=== PATIENT | female | born 1980 | race African-American/Black ===

== ENCOUNTER 2017-11-12 09:28 | Emergency (ER) | payer OTHER, SELFPAY | END 2017-11-12 10:33 | disposition home or self-care (01) | LOC: SCSER 09:28 | DX: S16.1XXA Strain of muscle, fascia and tendon at neck level, initial encounter (principal); S39.012A Strain of muscle, fascia and tendon of lower back, initial encounter; K21.9 Gastro-esophageal reflux disease without esophagitis; I10 Essential (primary) hypertension; V89.2XXA Person injured in unspecified motor-vehicle accident, traffic, initial encounter; Y92.481 Parking lot as the place of occurrence of the external cause | CPT/HCPCS: 99283 ==

== ENCOUNTER 2017-11-22 11:32 | Outpatient (CLI) | payer OTHER | END 2017-11-22 11:33 | disposition home or self-care (01) | LOC: BICRAD 11:32 | PROVIDERS: ATTEND Family Medicine | DX: M54.2 Cervicalgia (principal); V89.2XXA Person injured in unspecified motor-vehicle accident, traffic, initial encounter; R20.2 Paresthesia of skin; M47.892 Other spondylosis, cervical region | CPT/HCPCS: 72040 ==

== ENCOUNTER 2017-11-28 14:00 | Outpatient (CLI) | payer OTHER | END 2017-11-28 14:01 | disposition home or self-care (01) | LOC: BICRAD 14:00 | PROVIDERS: ATTEND Family Medicine | DX: M54.9 Dorsalgia, unspecified (principal); M47.897 Other spondylosis, lumbosacral region | CPT/HCPCS: 72100; 72220 ==

== ENCOUNTER 2017-12-14 15:57 | Outpatient (CLI) | payer OTHER | END 2017-12-14 15:58 | disposition home or self-care (01) | LOC: BICMRI 15:57 | PROVIDERS: ATTEND Neurological Surgery | DX: M48.02 Spinal stenosis, cervical region; M47.12 Other spondylosis with myelopathy, cervical region; M25.78 Osteophyte, vertebrae; M99.81 Other biomechanical lesions of cervical region | CPT/HCPCS: 72141 ==

== ENCOUNTER 2018-03-03 10:14 | Outpatient (CLI) | payer OTHER ==
[2018-03-03 11:55] LABS: BHCG - Serum Negative (NEGATIVE); Pregs Control Background? CLEAR/WHITE (CLR/WHITE); Pregs Control Bar Appear? YES (CONTROL BAR)
== END 2018-03-03 10:15 | disposition home or self-care (01) ==
LOC: LABBT 10:14
PROVIDERS: ATTEND Neurological Surgery
DX: Z01.812 Encounter for preprocedural laboratory examination (principal); M47.12 Other spondylosis with myelopathy, cervical region
CPT/HCPCS: 84703

== ENCOUNTER 2018-03-06 06:38 | Day surgery (SDC) | payer OTHER ==
[2018-03-03 10:45] VITALS: BMI 41.5
[2018-03-06] MEDS ORDERED: Sodium Chloride 0.9% 10 ML ONE (06:48)
[2018-03-06] MEDS ORDERED: CEFAZOLIN/Water 2 GM/20 ML SYRINGE ONE (07:02)
[2018-03-06] MEDS ORDERED: Fentanyl 100 MCG/2 ML VIAL ONE ×4 (08:06→10:06)
[2018-03-06] MEDS ORDERED: Midazolam HCl 2 mg/2 ml Vial ONE (08:07)
[2018-03-06] MEDS ORDERED: HYDROmorphone 0.5 MG/0.5 ML SYRINGE ONE (08:43)
[2018-03-06] MEDS ORDERED: Ketorolac Tromethamine 30 MG/ML VIAL ONE (09:43)
--- NOTE | 2018-03-06 10:34 | OP ---
DATE OF PROCEDURE: 03/06/2018 SURGEON: Jaime Huerta M.D. HEATING UNIT INSTALLER: Armando Vizcaino PA-C PROCEDURE: Anterior cervical discectomy C5-6 and C6-7, interbody arthrodesis, intravertebral biomech anical device, local morselized autograft, demineralized bone matrix, anterior titanium instrumentati on C5-6 and C6-7. PROCEDURE IN DETAIL: The patient was brought to the operating room and intubated. She was positione d supine in modest extension on a gel-filled donut. Incision was made in the right precervical area and dissecting medial to the sternocleidomastoid muscle, identified the anterior cervical spine and o ur level was confirmed by x-ray. We debrided anterior osteophytes, placed distraction across the dis c spaces, and using the operating microscope and microdissection techniques, completely decompressed the spinal cord, removing disk and osteophyte complex beneath the posterior longitudinal ligament. T he bony endplates were then decorticated for purpose of arthrodesis and appropriately sized intravert ebral biomechanical PEEK devices were brought into the field, filled with demineralized bone matrix a nd local morselized autograft, and tapped into place securely at C5-6 and C6-7. Next, an anterior pl ate was brought into the field and secured to C5, C6, and C7 using two 14 mm screws at each level. T he wound was then extensively irrigated, immaculate hemostasis was secured, and the wound was closed in anatomic layers.
[2018-03-06] MEDS ORDERED: diphenhydrAMINE 50 MG/ML VIAL ONE (10:44)
== END 2018-03-06 16:30 | disposition home or self-care (01) ==
LOC: SDC 06:38
PROVIDERS: ATTEND Neurological Surgery
DX: M48.02 Spinal stenosis, cervical region (principal); M47.12 Other spondylosis with myelopathy, cervical region; I10 Essential (primary) hypertension; Z88.5 Allergy status to narcotic agent; Z79.899 Other long term (current) drug therapy
CPT/HCPCS: 76001; 96374; 96375; A4216; C1713; C1776; J0131; J1170; J1200; J1885; J2250; J3010; J3490

== ENCOUNTER 2018-03-21 11:02 | Outpatient (CLI) | payer OTHER ==
--- NOTE | 2018-03-21 13:27 | RAD ---
CERVICAL SPINE RADIOGRAPH SERIES FOUR VIEWS: Indication: Cervical spondylosis with myelopathy, radiculopathy. FINDINGS: Lateral masses of C1 are appropriately aligned. The dens is intact. There is anterior fusion spanning C5 through C7 with anterior metal plate present and two vertebral body screws involving C5, 6, and 7 . Intervening disc space prostheses are present at C5-6 and C6-7. There is no obvious hardware compli cation. There is mild kyphotic curvature of the cervical spine. IMPRESSION: No acute osseous abnormality of the cervical spine. POS: [facility]
== END 2018-03-21 11:03 | disposition home or self-care (01) ==
LOC: TBSIIMAG 11:02
PROVIDERS: ATTEND Neurological Surgery
DX: M47.12 Other spondylosis with myelopathy, cervical region (principal); M47.22 Other spondylosis with radiculopathy, cervical region
CPT/HCPCS: 72040

== ENCOUNTER 2018-04-27 13:57 | Outpatient (CLI) | payer OTHER ==
--- NOTE | 2018-04-27 15:25 | RAD ---
CERVICAL SPINE THREE VIEWS: HISTORY: Disk displacement. Followup after surgery. COMPARISON: 03/21/2018 FINDINGS: On the open-mouth projection, the lateral masses of C1 and C2 articulate appropriately. Limited eval uation of the odontoid process. On the anterior projection, there is an anterior fusion plate with transvertebral screws at C5, C6, a nd C7. Disk prostheses at C5-C6 and C6-C7. Fusion changes are similar to the prior exam. Stable al ignment. Vertebral body height is maintained, and there is no fracture. Stable slight reversal of c ervical kyphosis. Of note, the seventh vertebral body has small cervical ribs bilaterally. IMPRESSION: Stable post surgical changes. POS: [facility]
== END 2018-04-27 13:58 | disposition home or self-care (01) ==
LOC: TBSIIMAG 13:57
PROVIDERS: ATTEND Neurological Surgery
DX: M51.36 Other intervertebral disc degeneration, lumbar region (principal); Z98.890 Other specified postprocedural states
CPT/HCPCS: 72040

== ENCOUNTER 2018-05-29 17:25 | Inpatient (IN) | payer OTHER ==
[~2018-05-29 17:25] MED LIST: Iopamidol 370 76% 100 ML VIAL ONE
[2018-05-29] MEDS ORDERED: Morphine 4 MG/ML VIAL ONE (17:50)
[2018-05-29] MEDS ORDERED: Ketorolac Tromethamine 30 MG/ML VIAL ONE (18:27)
[2018-05-29] MEDS ORDERED: Lorazepam 2 MG/ML VIAL ONE (18:27)
[2018-05-29 18:34] LABS: Eosinophils 3 % (0-10); Hemoglobin 12.9 g/dL (12.0-16.0); Lymphocytes 36 % (21-51); MDiff Complete? YES; Mean Corpuscular HGB CONC 32.8 g/dL (32.0-36.0); Mean Corpuscular Hemoglobin 29.7 pg (27.0-31.0); Mean Corpuscular Volume 90.4 fL (78.0-98.0); Monocytes 9 % (0-10); Neutrophil 51 % (42-75); PLT Morphology Comment Appears Adequate; Platelet Count 297 thou/uL (130-400); RBC Distribution Width 10.8 % (11.5-14.5); Red Blood Cell (RBC) Count 4.33 mill/uL (4.20-5.40); White Blood Cell (WBC) Count 10.4 thou/uL (4.8-10.8)
[2018-05-29 18:41] LABS: ALT (SGPT) 25 U/L (8-55); AST (SGOT) 21 U/L (5-34); Albumin 4.2 g/dL (3.5-5.0); Alkaline Phosphatase 56 U/L (40-150); Anion Gap 15 mmol/L (10-20); BUN (Urea Nitrogen) 10 mg/dL (7.0-18.7); Bilirubin, Total 0.6 mg/dL (0.2-1.2); Calc. Creatinine Clearance 0 mL/min (70-130); Calcium 9.8 mg/dL (7.8-10.44); Carbon Dioxide 24 mmol/L (22-29); Chloride 104 mmol/L (98-107); Estimated GFR-MDRD 90; Globulin 3.8 g/dL (2.4-3.5); Glucose 107 mg/dL (70-105); Lipase 16 U/L (8-78); Potassium 3.5 mmol/L (3.5-5.1); Sodium 139 mmol/L (136-145)
[2018-05-29 18:42] LABS: CKMB 0.4 ng/mL (0-6.6); Troponin I Less than 0.010 ng/mL (< 0.028)
--- NOTE | 2018-05-29 18:54 | RAD ---
AP VIEW CHEST: HISTORY: Assess for spontaneous pneumothorax. FINDINGS: AP view chest demonstrates the lungs to be well aerated. There is suboptimal inspiratory effort. No evidence of pneumonia is seen. Mild pulmonary vascular congestion is seen. No significant evidence of pneumothorax or pneumonia is seen. IMPRESSION: Suboptimal inspiratory effort; otherwise, unremarkable anterior-posterior view chest. POS: [facility]
[2018-05-29] MEDS ORDERED: Enoxaparin Sodium 100 MG/ML SYRINGE ONE (19:27)
--- NOTE | 2018-05-29 20:03 | CT ---
CONTRAST ENHANCED CTA CHEST: HISTORY: Pleuritic chest pain. TECHNIQUE: Contrast enhanced CTA chest was performed, and 2D and 3D reconstructed images were performed on an in dependent 3D work station. FINDINGS: CTA chest demonstrates an extensive filling defect seen in the right distal pulmonary artery, compati ble with a large pulmonary embolus, which extends into the right lower lobe and right middle lobe. A dditional filling defects also seen in the left lower lobe pulmonary arteries, compatible with additi onal left lower lobe pulmonary emboli. Some areas of air space opacity also seen in the right lower lobe, compatible with possible areas of right lower lobe developing pulmonary infarction. IMPRESSION: Extensive bilateral lower lobe filling defects, compatible with extensive pulmonary emboli. The righ t-sided clot also extends into the right middle lobe. POS: [facility]
[2018-05-29 22:16] VITALS: BMI 39.7
[2018-05-29] MEDS ORDERED: Ondansetron HCl/PF 4 MG/2 ML Vial IVP PRN (23:48)
[2018-05-29] MEDS ORDERED: Acetaminophen 500 MG TAB PO PRN (23:50)
[2018-05-30 06:46] LABS: #Eosinphils 0.1 thou/uL (0.0-0.7); #Lymphocytes 3.9 thou/uL (1.20-3.40); #Monocytes 0.8 thou/uL (0.11-0.59); #Neutrophils 4.5 thou/uL (1.40-6.50); %Basophils 0.5 % (0.0-1.0); %Eosinophils 1.5 % (0.0-10.0); %Lymphocytes 41.4 % (21.0-51.0); %Monocytes 8.8 % (0.0-10.0); %Neutrophils 47.8 % (42.0-75.0); Hemoglobin 11.3 g/dL (12.0-16.0); Mean Corpuscular HGB CONC 33.1 g/dL (32.0-36.0); Mean Corpuscular Hemoglobin 30.4 pg (27.0-31.0); Mean Corpuscular Volume 91.8 fL (78.0-98.0); Mean Platelet Volume 7.5 fL (7.4-10.4); Platelet Count 299 thou/uL (130-400); RBC Distribution Width 11.4 % (11.5-14.5); White Blood Cell (WBC) Count 9.4 thou/uL (4.8-10.8)
[2018-05-30 06:50] LABS: Anion Gap 14 mmol/L (10-20); BUN (Urea Nitrogen) 12 mg/dL (7.0-18.7); Calc. Creatinine Clearance 154 mL/min (70-130); Calcium 9.1 mg/dL (7.8-10.44); Carbon Dioxide 22 mmol/L (22-29); Chloride 103 mmol/L (98-107); Estimated GFR-MDRD Greater than 90; Glucose 103 mg/dL (70-105); Potassium 3.5 mmol/L (3.5-5.1); Sodium 135 mmol/L (136-145)
--- NOTE | 2018-05-30 07:27 | HP ---
TIME OF EVALUATION: 2300 hours. PRIMARY CARE PHYSICIAN: Dr. Helen Flores. CODE STATUS: FULL CODE. CHIEF COMPLAINT: Chest pain. HISTORY OF PRESENT ILLNESS: This is a 38-year-old female patient. The patient has a past medical history of obesity, GERD, hypertension, who came to the hospital, transferred from [facility] ER after having shortness of breath, severe chest pain on the right side of the chest. Chest pain worsens with inspiration and cough. Symptoms have been present for a week. Since 11: 00 a.m. this morning, has been getting really worse. No clear triggers, no alleviating factors, had pain medications in the ER. REVIEW OF SYSTEMS: Constitutional: The patient had no fever, chills, or generalized weakness. Respiratory: The patient had occasional cough with pleuritic chest pain. No sputum production. Cardiovascular: Chest pain as described above, palpitation. Gastrointestinal: No nausea, vomiting, diarrhea , or abdominal pain. Central Nervous Systems: No dizziness, headache, or feeling lightheaded. Genitourinary: No burning on urination. Extremities: No leg swelling. All other systems reviewed and negative except for the findings mentioned above. PAST MEDICAL HISTORY: Mentioned in the HPI. PAST SURGICAL HISTORY: Patient has a history of carpal tunnel surgery on the right side. History of cholecystectomy, , cervical spine surgery. PSYCHIATRIC HISTORY: No previous psychiatric history. SOCIAL HISTORY: No drugs, alcohol, or smoking history. FAMILY HISTORY: Grandmother had DVT. Mother had hypertension. Father is , unknown family history. KNOWN ALLERGIES: HYDROCODONE. HOME MEDICATIONS: Vitamin D3, omeprazole, amlodipine, metoprolol, hydrochlorothiazide, . PHYSICAL EXAMINATION: VITAL SIGNS: On presentation, blood pressure 134/76, and temperature 100.1, pain 10/10 in the right side of the chest. Heart rate was 114, respiratory rate was 26, saturation 99 on room air. GENERAL APPEARANCE: The patient is alert, oriented, in no any acute distress. HEENT: Eyes, normal conjunctivae. Dry oral mucosa. Anicteric. NECK: No JVD. RESPIRATORY: Bilateral air entry is decreased mostly on the right side. The patient is not breathing properly due to right side pain. No wheezing. Symmetric expansion. CARDIOVASCULAR: Patient is tachycardic, normal rhythm. No murmurs, no gallop. EXTREMITIES: No edema. ABDOMEN: Soft, normal bowel sounds. MUSCULOSKELETAL: Baseline range of motion and strength. No tenderness. Peripheral pulses are present. Capillary refill seems to be intact. SKIN: Warm and intact. No pallor, no rash, no redness. NEUROLOGY: Baseline sensorium. No evidence of any new focal weakness. Baseline speech. Cranial nerves seem to be intact. PSYCHIATRIC: The patient is in good mood. No anxiety. Oriented, optimal judgment. IMAGING: EKG: Patient has sinus tachycardia, no other specific changes, nondiagnostic for any other pathology. RADIOLOGY: The patient's CT chest was done, showed pulmonary embolism, worse on the right side with possible pulmonary infarction. LABORATORY DATA: White count 10.4, hemoglobin 12.9, MCV 90.4, platelet count 297,000. D-dimer 3.95. Sodium 139, potassium 3.5, chloride 104, carbon dioxide 24, anion gap 15, BUN 10, creatinine 0.8, GFR 90, glucose 107, calcium 9.8, total bilirubin 0.6, AST 31, ALT 35, alkaline phosphatase 56. Troponin was negative. Beta-natriuretic peptide was normal. Serum total protein 8.0, albumin 4.2, globulin 3.8, albumin and globulin ratio 1.1, lipase 16. ASSESSMENT AND PLAN: The patient will be placed in the hospital following medical problems: 1. Multiple pulmonary embolism with right-sided possible pulmonary infarction. The patient is on full dose Lovenox. No clear etiology, only finding was that the patient was on estrogen pills, that might be related to the PE. It is of note also the patient has a neck surgery a few weeks ago that could have been contributed to the PE. I have discussed in details of choices regarding anticoagulation with Coumadin versus the newer anticoagulants. The patient will make a decision in the morning. Once arrangements done for the patient to be able to get her medications, then we can switch to oral ones. 2. Severe right-sided chest pain. The patient needing opioid medication for optimal control. At this point, the patient had risk complications and treatment. 3. History of hypertension. We will not treat aggressively since patient has risk for obstructive shock. This can be reconciled once patient is more stable. 4. Deep venous thrombosis prophylaxis. The patient is on full-dose Lovenox. MTDD
[2018-05-30] MEDS: Enoxaparin Sodium 120 MG/0.8 ML SYRINGE SC SCH ×2 (09:03→21:58)
[2018-05-30] MEDS: Loratadine 10 MG TAB PO SCH (09:03)
[2018-05-30] MEDS: Multivit, Therapeutic 1 TAB PO SCH (09:04)
[2018-05-30] MEDS ORDERED: Fentanyl 100 MCG/2 ML VIAL SLOW IVP PRN (09:30)
[2018-05-30] MEDS ORDERED: Lorazepam 0.5 MG TAB PO PRN (09:31)
[2018-05-30] MEDS ORDERED: Ketorolac Tromethamine 30 MG/ML VIAL IVP PRN (09:31)
[2018-05-30] MEDS ORDERED: Dextrose 5% in Water 1,000 ML IV PRN (09:56)
[2018-05-30] MEDS ORDERED: HumaLOG 300 UNITS/3 ML VIAL SC PRN (09:56)
[2018-05-30] MEDS ORDERED: Dextrose 50% Abboject 50 ML SYRINGE SLOW IVP PRN (09:56)
[2018-05-30] MEDS ORDERED: Lidocaine 5% Patch TD SCH (10:00)
[2018-05-30] MEDS ORDERED: Lidocaine Patch Removal 1 EACH TOP SCH ×3 (10:00→22:00)
[2018-05-30 13:48] LABS: INR-International Normal Ratio 1.1
--- NOTE | 2018-05-30 15:20 | PDOC.PN ---
- Subjective Encounter Start Date: 05/30/18 Encounter Start Time: 08:00 Pt seen for followup re: pulmonary embolism. Reports chest pain, on and off. - Objective Resuscitation Status: Resuscitation Status FULL:Full Resuscitation MAR Reviewed: Yes Vital Signs & Weight: Vital Signs (12 hours) Temp Pulse Resp BP Pulse Ox 05/30/18 12:04 98.8 F 103 H 16 130/82 98 05/30/18 07:35 98.3 F 107 H 18 126/74 96 05/30/18 03:23 99.3 F 82 18 122/72 97 Weight Weight 238 lb 12.8 oz I&O: 05/29/18 05/30/18 05/31/18 06:59 06:59 06:59 Intake Total 200 Output Total 400 Balance -200 Result Diagrams: 05/30/18 05:43 05/30/18 05:43 Additional Labs: Accuchecks 05/30/18 11:21 POC Glucose 104 EKG Reviewed by me: Yes (Tele: NSR) Phys Exam - Physical Examination Obese HEENT: moist MMs, sclera anicteric, 2+ tonsils Neck: no nodes, no JVD, supple, full ROM Respiratory: no wheezing, no rales, no rhonchi, clear to auscultation bilateral Cardiovascular: RRR, no rub S1, S2 Gastrointestinal: soft, non-tender, no distention, positive bowel sounds Neurological: moves all 4 limbs Psychiatric: normal affect, A&O x 3 Dx/Plan (1) Pulmonary embolism Code(s): I26.99 - OTHER PULMONARY EMBOLISM WITHOUT ACUTE COR PULMONALE Status : Acute Comment: discussed with pt, pt wants to go on warfarin. Will start warfarin. (2) Chest pain Code(s): R07.9 - CHEST PAIN, UNSPECIFIED Status: Acute Comment: Due to PE. Start fentanyl PRN, toradol PRN and lidocaine patch. (3) GERD (gastroesophageal reflux disease) Code(s): K21.9 - GASTRO-ESOPHAGEAL REFLUX DISEASE WITHOUT ESOPHAGITIS Status: Chronic Comment: stable (4) HTN (hypertension) Code(s): I10 - ESSENTIAL (PRIMARY) HYPERTENSION Status: Chronic Comment: controlled - Plan * . Review of Systems - Review of Systems Constitutional: negative: fever, chills, sweats, weakness, malaise Respiratory: Pleuritic Pain. negative: Cough, Shortness of Breath, SOB with Excertion, Sputum, Wheezing Cardiovascular: chest pain. negative: palpitations, orthopnea, paroxysmal nocturnal dyspnea, edema, light headedness Gastrointestinal: negative: Nausea, Vomiting, Abdominal Pain, Diarrhea, Constipation, Melena, Hematochezia Genitourinary: negative: Dysuria, Frequency, Incontinence, Hematuria, Retention Skin: negative: Rash, Lesions, Angel, Bruising - Medications/Allergies Allergies/Adverse Reactions: Allergies Allergy/AdvReac Type Severity Reaction Status Date / Time hydrocodone AdvReac itch Verified 03/03/18 10:45 Medications: Current Medications Acetaminophen (Tylenol) 650 mg PO Q4H PRN PRN Reason: Headache/Fever Acetaminophen (Tylenol) 500 mg PO Q6H PRN PRN Reason: Pain Last Admin: 05/30/18 00:19 Dose: 500 mg Cholecalciferol (Vitamin D3) 1,000 units PO DAILY [facility] Last Admin: 05/30/18 09:04 Dose: 1,000 units Dextrose/Water (Dextrose 50%) 25 gm SLOW IVP PRN PRN PRN Reason: Hypoglycemia Enoxaparin Sodium (Lovenox) 110 mg SC 0900,2100 [facility] Last Admin: 05/30/18 09:03 Dose: 110 mg Fentanyl (Sublimaze) 12.5 mcg SLOW IVP Q8H PRN PRN Reason: Pain Last Admin: 05/30/18 12:19 Dose: 12.5 mcg Glucagon (Glucagon) 1 mg IM PRN PRN PRN Reason: Hypoglycemia Dextrose/Water (D5w) 1,000 mls @ 0 mls/hr IV .Q0M PRN PRN Reason: Hypoglycemia Insulin Human Lispro (Humalog) 0 units SC .MILD SLIDING SCALE PRN PRN Reason: Mild Correctional Scale Ketorolac Tromethamine (Toradol) 15 mg IVP Q8H PRN PRN Reason: Pain Stop: 06/04/18 09:32 Last Admin: 05/30/18 10:05 Dose: 15 mg Lidocaine (Lidoderm 5% Patch) 1 patch TD Q24H [facility] Last Admin: 05/30/18 10:05 Dose: 1 patch Loratadine (Claritin) 10 mg PO DAILY [facility] Last Admin: 05/30/18 09:03 Dose: 10 mg Lorazepam (Ativan) 0.5 mg PO Q8H PRN PRN Reason: Anxiety Miscellaneous Medication (Lidocaine Patch Removal) 1 each TOP ASDIR [facility] Miscellaneous Medication (Pharmacy To Dose) 0 each PO WILLCALL [facility] Multivitamins (Theragran) 1 tab PO DAILY [facility] Last Admin: 05/30/18 09:04 Dose: 1 tab Ondansetron HCl (Zofran) 4 mg IVP Q6H PRN PRN Reason: Nausea/Vomiting Pantoprazole Sodium (Protonix) 40 mg PO DAILY [facility] Last Admin: 05/30/18 09:04 Dose: 40 mg Sodium Chloride (Flush - Normal Saline) 10 ml IVF Q12HR [facility] Sodium Chloride (Flush - Normal Saline) 10 ml IVF PRN PRN PRN Reason: Saline Flush Last Admin: 05/30/18 10:08 Dose: 10 ml Warfarin Sodium (Coumadin) 5 mg PO 1700 [facility] Zolpidem Tartrate (Ambien) 5 mg PO HS [facility]
[2018-05-30] MEDS: Acetaminophen 325 MG TAB PO PRN (15:37)
[2018-05-30 16:02] LABS: BHCG - Serum Negative (NEGATIVE); Pregs Control Background? CLEAR/WHITE (CLR/WHITE); Pregs Control Bar Appear? YES (CONTROL BAR)
[2018-05-30] MEDS ORDERED: Melatonin 3 MG TAB PO PRN (16:19)
[2018-05-30] MEDS: Warfarin Sodium 5 MG TAB PO SCH (17:06)
[2018-05-30] MEDS: Ketorolac Tromethamine 30 MG/ML VIAL IVP PRN (17:08)
[2018-05-30] MEDS: Zolpidem Tartrate 5 MG TAB PO SCH (22:02)
[2018-05-30] MEDS: Fentanyl 100 MCG/2 ML VIAL SLOW IVP PRN (22:08)
[2018-05-31 05:42] LABS: INR-International Normal Ratio 1.1
[2018-05-31 05:47] LABS: Hemoglobin 11.3 g/dL (12.0-16.0); Platelet Count 321 thou/uL (130-400)
[2018-05-31 05:50] LABS: Calc. Creatinine Clearance 158 mL/min (70-130); Estimated GFR-MDRD Greater than 90
[2018-05-31] MEDS: Multivit, Therapeutic 1 TAB PO SCH (10:06)
[2018-05-31] MEDS: Loratadine 10 MG TAB PO SCH (10:07)
[2018-05-31] MEDS: Enoxaparin Sodium 120 MG/0.8 ML SYRINGE SC SCH ×2 (10:08→21:33)
[2018-05-31] MEDS: Lidocaine 5% Patch TD SCH (10:11)
--- NOTE | 2018-05-31 12:35 | CON ---
DATE OF CONSULTATION: 05/31/2018 CONSULTING PHYSICIAN: Hospitalist group. REASON FOR CONSULTATION: Pulmonary embolism. HISTORY OF PRESENT ILLNESS: Ms. Juan Wills is a pleasant 38-year-old female who presented yeste rday with 3-4 days history of right-sided chest pain with radiation to the shoulder. She thought it was related to a surgery she had on her shoulder back in 02/2018. She was found instead to have sign ificant pulmonary emboli, mainly on the right, but some on the left. She has no previous history of blood clotting disorder. She does take control pills. She knows of no recent injury to her le gs and has had no prolonged immobilization. PAST MEDICAL HISTORY: 1. Hypertension. 2. Newly diagnosed diabetes mellitus type 2. PAST SURGICAL HISTORY: 1. Carpal tunnel release in the right side. 2. Shoulder surgery. 3. Cholecystectomy. 4. . 5. Cervical spine surgery. PSYCHIATRIC HISTORY: Unremarkable. SOCIAL HISTORY: Nonsmoker, does not consume alcohol. She is , has children. FAMILY MEDICAL HISTORY: Her sister had a DVT. Mother had hypertension. ALLERGIES: HYDROCODONE. MEDICATIONS: Prior to admission; omeprazole, amlodipine, metoprolol, hydrochlorothiazide, vitamin D 3. REVIEW OF SYSTEMS: Twelve point review of systems otherwise negative. PHYSICAL EXAMINATION: VITAL SIGNS: Temperature 98.3, pulse 102, respirations 16, O2 sat 96%, blood pressure 130/71. GENERAL: She is awake, alert, and in no distress. HEENT: Unremarkable. NECK: No adenopathy or JVD. LUNGS: She has a scar just above her clavicle on the right side. CARDIOVASCULAR: S1, S2 regular with no audible murmur. LUNGS: A few crackles in the right base, left side clear. ABDOMEN: Soft, nontender, nondistended. EXTREMITIES: No clubbing, cyanosis. She may have some edema in her left lower extremity. LABORATORY DATA: White blood cell count 9.4, hematocrit 34, platelet count 299. INR 1.1. Sodium 13 5, potassium 3.5, chloride 103, CO2 22, BUN 12, creatinine 0.8, glucose 103, test negative. CT was reviewed. She has significant pulmonary emboli, especially on the right. She has a pulmonary infarction on the right. ASSESSMENT: 1. Pulmonary embolism. The prevailing risk factor seems to be use of contraceptives. She also has a family history. 2. Hypertension. 3. Diabetes mellitus type 2. RECOMMENDATIONS: 1. She needs an echocardiogram to evaluate her heart for right-sided strain. 2. Doppler ultrasound of lower extremities to evaluate for DVT. 3. Anticoagulation for at least 6 months. The patient has chosen to be on warfarin which means her hospital time might be extended as she needs to be bridged with Lovenox. Her goal INR should be 2.0- 3.0. 4. She needs to pursue a different method of control. 5. Further disposition to follow.
--- NOTE | 2018-05-31 15:10 | ULT ---
BILATERAL LOWER EXTREMITY VENOUS ULTRASOUND WITH DOPPLER: HISTORY: Known pulmonary artery emboli. COMPARISON: None. TECHNIQUE: Mai-scale, color-flow, and Doppler imaging with spectral wave-form analysis was performed of the lef t and right lower extremity venous system. FINDINGS: RIGHT LOWER EXTREMITY: There is compressibility, presence of flow, and augmentation in the common fe moral vein, femoral vein, and popliteal vein. There is flow in the greater saphenous vein, popliteal vein, and posterior tibial vein. LEFT LOWER EXTREMITY: There is compressibility, presence of flow, and augmentation in the proximal a nd mid femoral vein. There is evidence of echogenic material, compatible with thrombus, in the dista l femoral vein. There is also thrombus in the popliteal vein. Flow is not appreciated in the head of commission department ior tibial vein. The greater saphenous vein and profunda femoral vein are patent. IMPRESSION: Left lower extremity deep venous thrombus. POS: [facility]
--- NOTE | 2018-05-31 17:08 | PDOC.PN ---
- Subjective Encounter Start Date: 05/31/18 Encounter Start Time: 08:00 Pt seen for followup re: pulmonary embolism. Chest pain is better. No nausea or vomiting. No abdo pain. - Objective Resuscitation Status: Resuscitation Status FULL:Full Resuscitation MAR Reviewed: Yes Vital Signs & Weight: Vital Signs (12 hours) Temp Pulse Resp BP Pulse Ox 05/31/18 12:05 98.5 F 99 18 129/84 98 05/31/18 07:34 98.3 F 102 H 16 130/71 96 Weight Weight 237 lb 6.4 oz I&O: 05/30/18 05/31/18 06/01/18 06:59 06:59 06:59 Intake Total 200 1550 Output Total 400 600 Balance -200 950 Result Diagrams: 05/31/18 05:08 05/31/18 05:08 Additional Labs: Accuchecks 05/31/18 05/31/18 05/30/18 10:53 06:10 21:01 POC Glucose 129 H 104 192 H 05/30/18 17:17 POC Glucose 85 EKG Reviewed by me: Yes (Tele: sinus tachycardia) Phys Exam - Physical Examination Constitutional: NAD HEENT: moist MMs, sclera anicteric, oral pharynx no lesions, 2+ tonsils Neck: no nodes, no JVD, supple, full ROM Respiratory: no wheezing, no rales, no rhonchi, clear to auscultation bilateral S1, S2, tachy, reg Gastrointestinal: soft, non-tender, no distention, positive bowel sounds Neurological: moves all 4 limbs Psychiatric: normal affect, A&O x 3 Dx/Plan (1) Pulmonary embolism Code(s): I26.99 - OTHER PULMONARY EMBOLISM WITHOUT ACUTE COR PULMONALE Status : Acute Comment: Pt started on warfarin (2) Chest pain Code(s): R07.9 - CHEST PAIN, UNSPECIFIED Status: Acute Comment: Improve, continue fentanyl PRN, toradol PRN and lidocaine patch. (3) GERD (gastroesophageal reflux disease) Code(s): K21.9 - GASTRO-ESOPHAGEAL REFLUX DISEASE WITHOUT ESOPHAGITIS Status: Chronic Comment: stable (4) HTN (hypertension) Code(s): I10 - ESSENTIAL (PRIMARY) HYPERTENSION Status: Chronic Comment: controlled - Plan * . Review of Systems - Review of Systems Constitutional: negative: fever, chills, sweats, weakness, malaise Respiratory: negative: Cough, Shortness of Breath, SOB with Excertion, Pleuritic Pain, Sputum Cardiovascular: chest pain. negative: palpitations, orthopnea, paroxysmal nocturnal dyspnea, edema, light headedness Gastrointestinal: negative: Nausea, Vomiting, Abdominal Pain, Diarrhea, Constipation, Melena, Hematochezia Musculoskeletal: negative: Neck Pain, Shoulder Pain, Arm Pain, Back Pain, Hand Pain, Leg Pain, Foot Pain Skin: negative: Rash, Lesions, Angel, Bruising - Medications/Allergies Allergies/Adverse Reactions: Allergies Allergy/AdvReac Type Severity Reaction Status Date / Time hydrocodone AdvReac itch Verified 03/03/18 10:45 Medications: Current Medications Acetaminophen (Tylenol) 650 mg PO Q4H PRN PRN Reason: Headache/Fever Last Admin: 05/30/18 15:37 Dose: 650 mg Acetaminophen (Tylenol) 500 mg PO Q6H PRN PRN Reason: Pain Last Admin: 05/30/18 00:19 Dose: 500 mg Cholecalciferol (Vitamin D3) 1,000 units PO DAILY [facility] Last Admin: 05/31/18 10:06 Dose: 1,000 units Dextrose/Water (Dextrose 50%) 25 gm SLOW IVP PRN PRN PRN Reason: Hypoglycemia Enoxaparin Sodium (Lovenox) 110 mg SC 0900,2100 [facility] Last Admin: 05/31/18 10:08 Dose: 110 mg Fentanyl (Sublimaze) 12.5 mcg SLOW IVP Q6H PRN PRN Reason: Pain Last Admin: 05/30/18 22:08 Dose: 12.5 mcg Glucagon (Glucagon) 1 mg IM PRN PRN PRN Reason: Hypoglycemia Dextrose/Water (D5w) 1,000 mls @ 0 mls/hr IV .Q0M PRN PRN Reason: Hypoglycemia Insulin Human Lispro (Humalog) 0 units SC .MILD SLIDING SCALE PRN PRN Reason: Mild Correctional Scale Ketorolac Tromethamine (Toradol) 15 mg IVP Q6H PRN PRN Reason: Pain Stop: 06/04/18 09:32 Last Admin: 05/30/18 17:08 Dose: 15 mg Lidocaine (Lidoderm 5% Patch) 2 patch TD DAILY [facility] Last Admin: 05/31/18 10:11 Dose: Not Given Loratadine (Claritin) 10 mg PO DAILY [facility] Last Admin: 05/31/18 10:07 Dose: 10 mg Lorazepam (Ativan) 0.5 mg PO Q8H PRN PRN Reason: Anxiety Melatonin (Melatonin) 3 mg PO HS PRN PRN Reason: Insomnia Miscellaneous Medication (Pharmacy To Dose) 0 each PO WILLCALL [facility] Miscellaneous Medication (Lidocaine Patch Removal) 1 each TOP 2100 [facility] Multivitamins (Theragran) 1 tab PO DAILY [facility] Last Admin: 05/31/18 10:06 Dose: 1 tab Ondansetron HCl (Zofran) 4 mg IVP Q6H PRN PRN Reason: Nausea/Vomiting Pantoprazole Sodium (Protonix) 40 mg PO DAILY [facility] Last Admin: 05/31/18 10:07 Dose: 40 mg Sodium Chloride (Flush - Normal Saline) 10 ml IVF Q12HR [facility] Last Admin: 05/31/18 10:09 Dose: 10 ml Sodium Chloride (Flush - Normal Saline) 10 ml IVF PRN PRN PRN Reason: Saline Flush Last Admin: 05/31/18 10:09 Dose: 10 ml Warfarin Sodium (Coumadin) 5 mg PO 1700 [facility] Last Admin: 05/30/18 17:06 Dose: 5 mg Zolpidem Tartrate (Ambien) 5 mg PO HS [facility] Last Admin: 05/30/18 22:02 Dose: 5 mg
[2018-05-31] MEDS: Acetaminophen 325 MG TAB PO PRN (17:41)
[2018-05-31] MEDS: Warfarin Sodium 5 MG TAB PO SCH (17:42)
[2018-05-31] MEDS: Lidocaine Patch Removal 1 EACH TOP SCH (21:32)
[2018-05-31] MEDS: Zolpidem Tartrate 5 MG TAB PO SCH (21:33)
[2018-06-01] MEDS: Fentanyl 100 MCG/2 ML VIAL SLOW IVP PRN (02:18)
[2018-06-01 05:53] LABS: INR-International Normal Ratio 1.1
[2018-06-01] MEDS: Enoxaparin Sodium 120 MG/0.8 ML SYRINGE SC SCH ×2 (08:31→20:23)
[2018-06-01] MEDS: Lidocaine 5% Patch TD SCH (08:31)
[2018-06-01] MEDS: Ketorolac Tromethamine 30 MG/ML VIAL IVP PRN (08:32)
[2018-06-01] MEDS: Multivit, Therapeutic 1 TAB PO SCH (08:33)
[2018-06-01] MEDS: Loratadine 10 MG TAB PO SCH (08:33)
--- NOTE | 2018-06-01 09:27 | PRG ---
DATE OF SERVICE: 06/01/2018. SUBJECTIVE: The patient is continuing to have intermittent chest pain on the right, requiring [place] l. OBJECTIVE: VITAL SIGNS: Temperature 97.9, pulse 101, respirations 18, O2 sat 95% on room air, blood pressure 13 9/88. HEENT: Unremarkable. NECK: No JVD. CHEST: Clear without wheezing. CARDIAC: S1 and S2 regular. ABDOMEN: Soft. EXTREMITIES: No edema. LABORATORY DATA: She had deep venous thrombosis present in left lower extremity. Echocardiogram was basically normal except for slightly depressed EF. She had no signs of right heart strain. INR is 1.1. ASSESSMENT: 1. Deep venous thrombosis/pulmonary embolism. 2. Likely pulmonary infarction. PLAN: Continue Coumadin and enoxaparin. The patient can be transferred up to the medical floor as I do not think she needs further telemetry monitoring.
--- NOTE | 2018-06-01 14:07 | PDOC.PN ---
- Subjective Encounter Start Date: 06/01/18 Encounter Start Time: 07:20 Pt seen for followup re: pulmonary embolism. Had chest pain overnight, better now. - Objective Resuscitation Status: Resuscitation Status FULL:Full Resuscitation MAR Reviewed: Yes Vital Signs & Weight: Vital Signs (12 hours) Temp Pulse Resp BP Pulse Ox 06/01/18 11:36 98.3 F 102 H 16 137/82 97 06/01/18 07:43 97.9 F 101 H 18 139/88 95 06/01/18 04:00 98.4 F 101 H 21 H 133/79 93 L Weight Weight 237 lb 6.4 oz I&O: 05/31/18 06/01/18 06/02/18 06:59 06:59 06:59 Intake Total 1550 360 Output Total 600 600 Balance 950 -240 Result Diagrams: 05/31/18 05:08 05/31/18 05:08 Additional Labs: Accuchecks 06/01/18 05/31/18 05/31/18 11:38 20:57 17:08 POC Glucose 103 138 H 132 H EKG Reviewed by me: Yes (Tele: NSR) Phys Exam - Physical Examination Obese HEENT: moist MMs Neck: supple Respiratory: clear to auscultation bilateral Cardiovascular: RRR Gastrointestinal: soft Neurological: moves all 4 limbs Psychiatric: normal affect Dx/Plan (1) Pulmonary embolism Code(s): I26.99 - OTHER PULMONARY EMBOLISM WITHOUT ACUTE COR PULMONALE Status : Acute Comment: INR 1.1 today, warfarin dosing per pharmacy (2) Chest pain Code(s): R07.9 - CHEST PAIN, UNSPECIFIED Status: Acute Comment: Improved (3) GERD (gastroesophageal reflux disease) Code(s): K21.9 - GASTRO-ESOPHAGEAL REFLUX DISEASE WITHOUT ESOPHAGITIS Status: Chronic Comment: stable (4) HTN (hypertension) Code(s): I10 - ESSENTIAL (PRIMARY) HYPERTENSION Status: Chronic Comment: controlled - Plan * . Review of Systems - Review of Systems Respiratory: negative: Cough, Shortness of Breath, SOB with Excertion, Pleuritic Pain, Wheezing Cardiovascular: chest pain. negative: palpitations, orthopnea, paroxysmal nocturnal dyspnea, edema, light headedness - Medications/Allergies Allergies/Adverse Reactions: Allergies Allergy/AdvReac Type Severity Reaction Status Date / Time hydrocodone AdvReac itch Verified 03/03/18 10:45 Medications: Current Medications Acetaminophen (Tylenol) 650 mg PO Q4H PRN PRN Reason: Headache/Fever Last Admin: 05/31/18 17:41 Dose: 650 mg Acetaminophen (Tylenol) 500 mg PO Q6H PRN PRN Reason: Pain Last Admin: 05/30/18 00:19 Dose: 500 mg Cholecalciferol (Vitamin D3) 1,000 units PO DAILY [facility] Last Admin: 06/01/18 08:41 Dose: 1,000 units Dextrose/Water (Dextrose 50%) 25 gm SLOW IVP PRN PRN PRN Reason: Hypoglycemia Enoxaparin Sodium (Lovenox) 110 mg SC 0900,2099 [facility] Last Admin: 06/01/18 08:31 Dose: 110 mg Fentanyl (Sublimaze) 12.5 mcg SLOW IVP Q6H PRN PRN Reason: Pain Last Admin: 06/01/18 02:18 Dose: 12.5 mcg Glucagon (Glucagon) 1 mg IM PRN PRN PRN Reason: Hypoglycemia Dextrose/Water (D5w) 1,000 mls @ 0 mls/hr IV .Q0M PRN PRN Reason: Hypoglycemia Insulin Human Lispro (Humalog) 0 units SC .MILD SLIDING SCALE PRN PRN Reason: Mild Correctional Scale Ketorolac Tromethamine (Toradol) 15 mg IVP Q6H PRN PRN Reason: Pain Stop: 06/04/18 09:32 Last Admin: 06/01/18 08:32 Dose: 15 mg Lidocaine (Lidoderm 5% Patch) 2 patch TD DAILY [facility] Last Admin: 06/01/18 08:31 Dose: Not Given Loratadine (Claritin) 10 mg PO DAILY [facility] Last Admin: 06/01/18 08:33 Dose: 10 mg Lorazepam (Ativan) 0.5 mg PO Q8H PRN PRN Reason: Anxiety Melatonin (Melatonin) 3 mg PO HS PRN PRN Reason: Insomnia Miscellaneous Medication (Pharmacy To Dose) 0 each PO WILLCALL [facility] Miscellaneous Medication (Lidocaine Patch Removal) 1 each TOP 2100 [facility] Last Admin: 05/31/18 21:32 Dose: Not Given Multivitamins (Theragran) 1 tab PO DAILY [facility] Last Admin: 06/01/18 08:33 Dose: 1 tab Ondansetron HCl (Zofran) 4 mg IVP Q6H PRN PRN Reason: Nausea/Vomiting Pantoprazole Sodium (Protonix) 40 mg PO DAILY [facility] Last Admin: 06/01/18 08:33 Dose: 40 mg Sodium Chloride (Flush - Normal Saline) 10 ml IVF Q12HR [facility] Last Admin: 06/01/18 08:32 Dose: 10 ml Sodium Chloride (Flush - Normal Saline) 10 ml IVF PRN PRN PRN Reason: Saline Flush Last Admin: 05/31/18 10:09 Dose: 10 ml Warfarin Sodium (Coumadin) 7.5 mg PO 1700 [facility] Zolpidem Tartrate (Ambien) 5 mg PO HS [facility] Last Admin: 05/31/18 21:33 Dose: 5 mg
[2018-06-01] MEDS ORDERED: Warfarin Sodium 7.5 MG TAB PO SCH (17:00)
[2018-06-01] MEDS: Lidocaine Patch Removal 1 EACH TOP SCH (20:22)
[2018-06-01] MEDS: Zolpidem Tartrate 5 MG TAB PO SCH (20:23)
[2018-06-02] MEDS: Acetaminophen 325 MG TAB PO PRN ×2 (04:21→14:41)
[2018-06-02 04:50] LABS: Hemoglobin 11.2 g/dL (12.0-16.0); Platelet Count 402 thou/uL (130-400)
[2018-06-02 04:58] LABS: INR-International Normal Ratio 1.4; Prothrombin Time 16.8 SEC (12.0-14.7)
[2018-06-02 05:05] LABS: Calc. Creatinine Clearance 157 mL/min (70-130); Estimated GFR-MDRD Greater than 90
[2018-06-02] MEDS: Loratadine 10 MG TAB PO SCH (08:42)
[2018-06-02] MEDS: Enoxaparin Sodium 120 MG/0.8 ML SYRINGE SC SCH ×2 (08:42→21:08)
[2018-06-02] MEDS: Multivit, Therapeutic 1 TAB PO SCH (08:42)
[2018-06-02] MEDS: Lidocaine 5% Patch TD SCH (08:44)
--- NOTE | 2018-06-02 08:45 | PRG ---
DATE OF SERVICE: 06/02/2018 She is in good spirits, has no complaints. PHYSICAL EXAMINATION: VITAL SIGNS: On exam temperature is 98.3, pulse 89, respiratory rate 18, O2 sat 94%, blood pressure 130/87. HEENT: Unremarkable. NECK: No JVD. LUNGS: Clear. CARDIAC: S1 and S2 regular. ABDOMEN: Soft. EXTREMITIES: No edema. LABORATORY DATA: Hematocrit 33.9, platelet count 402. INR 1.4. ASSESSMENT: Deep venous thrombosis and pulmonary embolism. PLAN: The patient is continuing Coumadin and enoxaparin. When her INR is above 2, she could be disc harged to home. 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 Her was in the room and I instructed them both that they nee ded to find a new method of control since she will no longer be able to be on control pil luis.
--- NOTE | 2018-06-02 13:26 | PDOC.PN ---
- Subjective Encounter Start Date: 06/02/18 Encounter Start Time: 07:20 Pt seen for followup re: PE. Chest pain is better. Slept well. - Objective Resuscitation Status: Resuscitation Status FULL:Full Resuscitation Vital Signs & Weight: Vital Signs (12 hours) Temp Pulse Resp BP Pulse Ox 06/02/18 11:31 98.3 F 107 H 20 156/78 H 97 06/02/18 08:00 94 L 06/02/18 07:31 98.3 F 79 18 130/87 94 L 06/02/18 04:00 98.0 F 89 18 124/85 96 Weight Weight 237 lb 6.4 oz I&O: 06/01/18 06/02/18 06/03/18 06:59 06:59 06:59 Intake Total 360 500 Output Total 600 Balance -240 500 Result Diagrams: 06/02/18 04:00 06/02/18 04:00 Additional Labs: Accuchecks 06/02/18 06/01/18 06/01/18 11:35 20:47 16:55 POC Glucose 95 131 H 109 06/01/18 05:52 POC Glucose 104 Phys Exam - Physical Examination Obese HEENT: moist MMs Neck: supple Respiratory: clear to auscultation bilateral Cardiovascular: RRR Gastrointestinal: soft Neurological: moves all 4 limbs Psychiatric: normal affect Dx/Plan (1) Pulmonary embolism Code(s): I26.99 - OTHER PULMONARY EMBOLISM WITHOUT ACUTE COR PULMONALE Status : Acute Comment: INR 1.4 today, warfarin dosing per pharmacy (2) DVT (deep venous thrombosis) Code(s): I82.409 - ACUTE EMBOLISM AND THOMBOS UNSP DEEP VN UNSP LOWER EXTREMITY Status: Acute Comment: on warfarin with Lovenox bridge (3) Bacterial vaginosis Code(s): N76.0 - ACUTE VAGINITIS; B96.89 - OTH BACTERIAL AGENTS THE CAUSE OF DISEASES CLASSD ELSWHR Status: Acute Comment: Pt is asymptomatic, does not want treatment (4) Chest pain Code(s): R07.9 - CHEST PAIN, UNSPECIFIED Status: Acute Comment: Improved (5) GERD (gastroesophageal reflux disease) Code(s): K21.9 - GASTRO-ESOPHAGEAL REFLUX DISEASE WITHOUT ESOPHAGITIS Status: Chronic Comment: stable (6) HTN (hypertension) Code(s): I10 - ESSENTIAL (PRIMARY) HYPERTENSION Status: Chronic Comment: controlled - Plan * . Review of Systems - Review of Systems Cardiovascular: negative: chest pain, palpitations, orthopnea, paroxysmal nocturnal dyspnea, edema, light headedness Gastrointestinal: negative: Nausea, Vomiting, Abdominal Pain, Diarrhea, Constipation, Melena, Hematochezia - Medications/Allergies Allergies/Adverse Reactions: Allergies Allergy/AdvReac Type Severity Reaction Status Date / Time hydrocodone AdvReac itch Verified 03/03/18 10:45 Medications: Current Medications Acetaminophen (Tylenol) 650 mg PO Q4H PRN PRN Reason: Headache/Fever Last Admin: 06/02/18 04:21 Dose: 650 mg Acetaminophen (Tylenol) 500 mg PO Q6H PRN PRN Reason: Pain Last Admin: 05/30/18 00:19 Dose: 500 mg Cholecalciferol (Vitamin D3) 1,000 units PO DAILY [facility] Last Admin: 06/02/18 08:42 Dose: 1,000 units Dextrose/Water (Dextrose 50%) 25 gm SLOW IVP PRN PRN PRN Reason: Hypoglycemia Enoxaparin Sodium (Lovenox) 110 mg SC 0900,2100 [facility] Last Admin: 06/02/18 08:42 Dose: 110 mg Fentanyl (Sublimaze) 12.5 mcg SLOW IVP Q6H PRN PRN Reason: Pain Last Admin: 06/01/18 02:18 Dose: 12.5 mcg Glucagon (Glucagon) 1 mg IM PRN PRN PRN Reason: Hypoglycemia Dextrose/Water (D5w) 1,000 mls @ 0 mls/hr IV .Q0M PRN PRN Reason: Hypoglycemia Insulin Human Lispro (Humalog) 0 units SC .MILD SLIDING SCALE PRN PRN Reason: Mild Correctional Scale Ketorolac Tromethamine (Toradol) 15 mg IVP Q6H PRN PRN Reason: Pain Stop: 06/04/18 09:32 Last Admin: 06/01/18 08:32 Dose: 15 mg Lidocaine (Lidoderm 5% Patch) 2 patch TD DAILY [facility] Last Admin: 06/02/18 08:44 Dose: Not Given Loratadine (Claritin) 10 mg PO DAILY [facility] Last Admin: 06/02/18 08:42 Dose: 10 mg Lorazepam (Ativan) 0.5 mg PO Q8H PRN PRN Reason: Anxiety Melatonin (Melatonin) 3 mg PO HS PRN PRN Reason: Insomnia Miscellaneous Medication (Pharmacy To Dose) 0 each PO WILLCALL [facility] Miscellaneous Medication (Lidocaine Patch Removal) 1 each TOP 2100 [facility] Last Admin: 06/01/18 20:22 Dose: Not Given Multivitamins (Theragran) 1 tab PO DAILY [facility] Last Admin: 06/02/18 08:42 Dose: 1 tab Ondansetron HCl (Zofran) 4 mg IVP Q6H PRN PRN Reason: Nausea/Vomiting Pantoprazole Sodium (Protonix) 40 mg PO DAILY [facility] Last Admin: 06/02/18 08:42 Dose: 40 mg Sodium Chloride (Flush - Normal Saline) 10 ml IVF Q12HR [facility] Last Admin: 06/02/18 08:45 Dose: 10 ml Sodium Chloride (Flush - Normal Saline) 10 ml IVF PRN PRN PRN Reason: Saline Flush Last Admin: 05/31/18 10:09 Dose: 10 ml Warfarin Sodium (Coumadin) 10 mg PO 1700 [facility] Zolpidem Tartrate (Ambien) 5 mg PO HS [facility] Last Admin: 06/01/18 20:23 Dose: 5 mg
[2018-06-02] MEDS: Warfarin Sodium 10 MG TAB PO SCH (16:36)
[2018-06-02] MEDS: Lidocaine Patch Removal 1 EACH TOP SCH (21:08)
[2018-06-02] MEDS: Ketorolac Tromethamine 30 MG/ML VIAL IVP PRN (21:09)
[2018-06-02] MEDS: Zolpidem Tartrate 5 MG TAB PO SCH (21:09)
[2018-06-03 04:47] LABS: INR-International Normal Ratio 1.8; Prothrombin Time 21.2 SEC (12.0-14.7)
[2018-06-03] MEDS: Lidocaine 5% Patch TD SCH (08:05)
[2018-06-03] MEDS: Enoxaparin Sodium 120 MG/0.8 ML SYRINGE SC SCH ×2 (08:05→20:48)
[2018-06-03] MEDS: Loratadine 10 MG TAB PO SCH (08:05)
[2018-06-03] MEDS: Multivit, Therapeutic 1 TAB PO SCH (08:05)
[2018-06-03] MEDS ORDERED: Amlodipine 5 MG TAB PO SCH (09:45)
--- NOTE | 2018-06-03 11:57 | PRG ---
DATE OF SERVICE: 06/03/2018 SUBJECTIVE: This morning, she is doing well, no shortness of breath, coughing, or wheezing. INR is 1.8. It needs to get to 2 before she can go home. OBJECTIVE: VITAL SIGNS: Blood pressure is 149/83, pulse 82, temperature 98, respirations 18. CHEST: No wheezing. CARDIAC: Normal S1 and S2, no gallops. ABDOMEN: Soft, no masses. IMPRESSION: 1. Pulmonary embolus, on Coumadin 10 mg a day. 2. Obesity, BMI 39. PLAN: Continue Coumadin at 10. Hopefully, if INR is 2 tomorrow, she will be discharged home. Duglas w up with Dr. Gutierrez.
--- NOTE | 2018-06-03 13:46 | PDOC.PN ---
- Subjective Encounter Start Date: 06/03/18 Encounter Start Time: 08:20 Pt seen for followup re: pulmonary embolism. Denies chest pain. Had a small amount of nosebleed. No fevers or chills. Chest pain is better. - Objective Resuscitation Status: Resuscitation Status FULL:Full Resuscitation MAR Reviewed: Yes Vital Signs & Weight: Vital Signs (12 hours) Temp Pulse Resp BP BP Pulse Ox 06/03/18 11:38 98.3 F 79 20 146/100 H 95 06/03/18 10:49 72 149/83 H 06/03/18 07:41 98.6 F 72 18 149/83 H 93 L 06/03/18 07:30 93 L Weight Weight 237 lb 6.4 oz I&O: 06/02/18 06/03/18 06/04/18 06:59 06:59 06:59 Intake Total 500 1460 Balance 500 1460 Result Diagrams: 06/04/18 04:08 06/04/18 04:08 Additional Labs: Accuchecks 06/03/18 06/03/18 06/02/18 11:38 05:21 20:43 POC Glucose 87 103 119 H 06/02/18 16:21 POC Glucose 85 Labs reviewed by me Phys Exam - Physical Examination Obese HEENT: moist MMs Neck: supple Respiratory: clear to auscultation bilateral Cardiovascular: RRR Gastrointestinal: soft Neurological: moves all 4 limbs Psychiatric: normal affect Dx/Plan (1) Pulmonary embolism Code(s): I26.99 - OTHER PULMONARY EMBOLISM WITHOUT ACUTE COR PULMONALE Status : Acute Comment: INR 1.8 today, on warfarin (2) DVT (deep venous thrombosis) Code(s): I82.409 - ACUTE EMBOLISM AND THOMBOS UNSP DEEP VN UNSP LOWER EXTREMITY Status: Acute Comment: continue warfarin with Lovenox bridge (3) Bacterial vaginosis Code(s): N76.0 - ACUTE VAGINITIS; B96.89 - OTH BACTERIAL AGENTS THE CAUSE OF DISEASES CLASSD ELSWHR Status: Acute Comment: Pt is asymptomatic, does not want treatment (4) GERD (gastroesophageal reflux disease) Code(s): K21.9 - GASTRO-ESOPHAGEAL REFLUX DISEASE WITHOUT ESOPHAGITIS Status: Chronic Comment: stable (5) HTN (hypertension) Code(s): I10 - ESSENTIAL (PRIMARY) HYPERTENSION Status: Chronic Comment: start resuming home antihypertensives (6) Chest pain Code(s): R07.9 - CHEST PAIN, UNSPECIFIED Status: Resolved - Plan * . If epistaxis severe or recurrent, may need ENT eval Review of Systems - Review of Systems Cardiovascular: negative: chest pain, palpitations, orthopnea, paroxysmal nocturnal dyspnea, edema, light headedness Gastrointestinal: negative: Nausea, Vomiting, Abdominal Pain, Diarrhea, Constipation, Melena, Hematochezia - Medications/Allergies Allergies/Adverse Reactions: Allergies Allergy/AdvReac Type Severity Reaction Status Date / Time hydrocodone AdvReac itch Verified 03/03/18 10:45 Medications: Current Medications Acetaminophen (Tylenol) 650 mg PO Q4H PRN PRN Reason: Headache/Fever Last Admin: 06/02/18 14:41 Dose: 650 mg Acetaminophen (Tylenol) 500 mg PO Q6H PRN PRN Reason: Pain Last Admin: 05/30/18 00:19 Dose: 500 mg Acetaminophen/Codeine Phosphate (Tylenol #3) 1 tab PO Q6H PRN PRN Reason: Pain Amlodipine Besylate (Norvasc) [address] [facility] Cholecalciferol (Vitamin D3) 1,[address] [facility] Last Admin: 06/03/18 08:04 Dose: 1,000 units Dextrose/Water (Dextrose 50%) 25 gm SLOW IVP PRN PRN PRN Reason: Hypoglycemia Enoxaparin Sodium (Lovenox) 110 mg SC 0900,2100 [facility] Last Admin: 06/03/18 08:05 Dose: 110 mg Fentanyl (Sublimaze) 12.5 mcg SLOW IVP Q6H PRN PRN Reason: Pain Last Admin: 06/01/18 02:18 Dose: 12.5 mcg Glucagon (Glucagon) 1 mg IM PRN PRN PRN Reason: Hypoglycemia Hydrochlorothiazide (Hydrochlorothiazide) 12.[address] [facility] Dextrose/Water (D5w) 1,000 mls @ 0 mls/hr IV .Q0M PRN PRN Reason: Hypoglycemia Insulin Human Lispro (Humalog) 0 units SC .MILD SLIDING SCALE PRN PRN Reason: Mild Correctional Scale Lidocaine (Lidoderm 5% Patch) [address] [facility] Last Admin: 06/03/18 08:05 Dose: Not Given Loratadine (Claritin) [address] [facility] Last Admin: 06/03/18 08:05 Dose: 10 mg Lorazepam (Ativan) 0.5 mg PO Q8H PRN PRN Reason: Anxiety Melatonin (Melatonin) 3 mg PO HS PRN PRN Reason: Insomnia Metoprolol Succinate (Toprol Xl) [address] [facility] Miscellaneous Medication (Pharmacy To Dose) [address] [facility] Miscellaneous Medication (Lidocaine Patch Removal) [address] [facility] Last Admin: 06/02/18 21:08 Dose: Not Given Multivitamins (Theragran) [address] [facility] Last Admin: 06/03/18 08:05 Dose: 1 tab Ondansetron HCl (Zofran) 4 mg IVP Q6H PRN PRN Reason: Nausea/Vomiting Pantoprazole Sodium (Protonix) [address] [facility] Last Admin: 06/03/18 08:04 Dose: 40 mg Sodium Chloride (Flush - Normal Saline) [address] [facility] Last Admin: 06/03/18 08:05 Dose: 10 ml Sodium Chloride (Flush - Normal Saline) 10 ml IVF PRN PRN PRN Reason: Saline Flush Last Admin: 05/31/18 10:09 Dose: 10 ml Warfarin Sodium (Coumadin) [address] [facility] Last Admin: 06/02/18 16:36 Dose: 10 mg Zolpidem Tartrate (Ambien) [address] [facility] Last Admin: 06/02/18 21:09 Dose: 5 mg
[2018-06-03] MEDS: Warfarin Sodium 10 MG TAB PO SCH (16:23)
[2018-06-03] MEDS: Acetaminophen/Codeine 30-300mg Tablet PO PRN (18:01)
[2018-06-03] MEDS: Zolpidem Tartrate 5 MG TAB PO SCH (20:48)
[2018-06-03] MEDS: Lidocaine Patch Removal 1 EACH TOP SCH (20:48)
[2018-06-04] MEDS: Acetaminophen/Codeine 30-300mg Tablet PO PRN (00:17)
[2018-06-04 04:51] LABS: Hemoglobin 11.5 g/dL (12.0-16.0); Platelet Count 406 thou/uL (130-400)
[2018-06-04 04:56] LABS: INR-International Normal Ratio 2.5; Prothrombin Time 27.2 SEC (12.0-14.7)
[2018-06-04 05:03] LABS: Anion Gap 14 mmol/L (10-20); BUN (Urea Nitrogen) 8 mg/dL (7.0-18.7); Calc. Creatinine Clearance 171 mL/min (70-130); Calcium 9.5 mg/dL (7.8-10.44); Carbon Dioxide 21 mmol/L (22-29); Chloride 107 mmol/L (98-107); Estimated GFR-MDRD Greater than 90; Glucose 87 mg/dL (70-105); Sodium 138 mmol/L (136-145)
[2018-06-04 07:31] VITALS: TEMP 98.2
[2018-06-04] MEDS: Multivit, Therapeutic 1 TAB PO SCH (08:45)
[2018-06-04] MEDS: Enoxaparin Sodium 120 MG/0.8 ML SYRINGE SC SCH (08:45)
[2018-06-04] MEDS: Loratadine 10 MG TAB PO SCH (08:45)
[2018-06-04] MEDS: Lidocaine 5% Patch TD SCH (08:46)
[2018-06-04] MEDS ORDERED: Hydrochlorothiazide 25 MG TAB PO SCH (09:00)
[2018-06-04] MEDS ORDERED: Amlodipine 5 MG TAB PO SCH (09:00)
--- NOTE | 2018-06-04 11:28 | PRG ---
DATE OF SERVICE: 06/04/2018 SUBJECTIVE: Johann Martinez is a 38-year-old female whose INR is 2.5. She wants to go home. She co uld be discharged home on Coumadin and recheck the level in the next several days. OBJECTIVE: VITAL SIGNS: Her sats are 94 on room air, blood pressure 135/83, temperature 98. CHEST: Decreased breath sounds without any wheezing. CARDIAC: Normal S1-S2. No gallops. ABDOMEN: No masses. IMPRESSION: Deep venous thrombosis, pulmonary embolism, obesity. Discharged home on Coumadin and close followup with PT/INR.
[2018-06-04 11:50] VITALS: BP 131/88
[2018-06-04] MEDS ORDERED: Warfarin Sodium 7.5 MG TAB PO SCH (17:00)
--- NOTE | 2018-06-04 18:06 | DIS ---
PRIMARY CARE PROVIDER: Helen Flores MD DATE OF ADMISSION: 05/29/2018 DATE OF DISCHARGE: 06/04/2018 DISCHARGE DIAGNOSES: 1. Pulmonary embolism. 2. Deep vein thrombosis. CONDITION OF PATIENT ON THE DAY OF DISCHARGE: Stable. I assessed Ms. Juan Wills on the day of discharge. She denies any chest pain or shortness of breath. Vital signs are stable. S1 and S2 are heard, regular. Lungs are clear to auscultation bilaterally. DISCHARGE MEDICATIONS: Warfarin 7.5 mg daily, with INR to be checked through her primary care provid er's office in 3 days' time. Acetaminophen 500 mg every 6 hours as needed, Norvasc 5 mg daily, vitam in D3 of 1000 units daily, hydrochlorothiazide 12.5 mg daily, Claritin 10 mg daily, Toprol-XL 50 mg d aily, multivitamins 1 capsule daily, omeprazole 20 mg daily, and Ambien 5 mg at bedtime. HOSPITAL COURSE: Ms. Martinez is a pleasant 38-year-old lady who was admitted to [facility] on 05/29/2018 for pulmonary embolism. Please refer to Dr. Mejía's history and physic al note dated 05/30/2018 for further details. She was started on warfarin after discussion regarding warfarin and novel oral anticoagulant agents. She was also advised to stop her control pills and to have alternate means of contraception. She has also been advised that she should not get preg nant while using warfarin. Pulmonology service was consulted as well. Dr. Gutierrez saw Ms. Juan Wills. He ordered lower ex tremity Dopplers, which showed DVT in the left lower extremity. She also had a 2D echocardiogram, wh ich showed left ventricular ejection fraction of 50-55% and normal right ventricle structure and func tion. On 05/31/2018, she received 5 mg of warfarin. On 06/02/2018 and 06/03/2018, she received 10 mg of wa rfarin. Her INR was 1.1 on 05/31/2018 and 06/01/2018, 1.4 on 06/02/2018, 1.8 on 06/03/2018, and 2.5 on 06/04/2018. She is being discharged home on 7.5 mg of warfarin and advised to have an INR checked through her primary care provider's office in 3 days' time. On the day of discharge, she has normal sodium, normal potassium, creatinine 0.75 and hemoglobin 11.5 . Platelet count is 406,000. Many thanks for allowing me to participate in your patient's care. Please feel free to contact me wi th any questions or concerns. DISCHARGE DESTINATION: Home. TOTAL AMOUNT OF TIME SPENT COORDINATING THIS DISCHARGE: 31 minutes.
== END 2018-06-04 12:10 | disposition home or self-care (01) | DRG 176 ==
LOC: SCSER 17:25 → 2NO 19:30 → T4-B 06-01 19:04
PROVIDERS: ADMIT Hospitalist; ATTEND Hospitalist
DX: I26.99 Other pulmonary embolism without acute cor pulmonale (principal); I82.402 Acute embolism and thrombosis of unspecified deep veins of left lower extremity; E66.9 Obesity, unspecified; Z68.39 Body mass index [BMI] 39.0-39.9, adult; K21.9 Gastro-esophageal reflux disease without esophagitis; I10 Essential (primary) hypertension; M19.90 Unspecified osteoarthritis, unspecified site; Z79.899 Other long term (current) drug therapy; Z88.5 Allergy status to narcotic agent; N76.0 Acute vaginitis
CPT/HCPCS: 36415; 36416; 71045; 71275; 80048; 80053; 82553; 82565; 83690; 83880; 84484; 84703; 85014; 85018; 85025; 85049; 85379; 85610; 87480; 87510; 87660; 93005; 93306; 93970; 94760; 96372; 96374; 96375; A4216; J1650; J1885; J2060; J2270; J3010

== ENCOUNTER 2018-06-13 13:21 | Outpatient (CLI) | payer OTHER ==
--- NOTE | 2018-06-13 15:50 | ULT ---
ULTRASOUND THYROID: DATE: 06/13/18. HISTORY: Enlarged thyroid. COMPARISON: No prior thyroid ultrasounds. FINDINGS: Isthmus: 0.3 cm anteroposterior. Right lobe: 4.2 x 1.7 x 1.4 cm. Left lobe: 5.5 x 2.8 x 3.1 cm. There is a solitary left thyroid nodule measuring 3.5 x 3.3 x 2.2 cm, with the following TIRADS kecia cteristics: Composition: Mixed cystic and solid: 1 point. Echogenicity: Hypoechoic: 2 points. Shape: Wider than tall: 0 points. Margin: Smooth: 0 points. Echogenic foci: None: 0 points. Total: 3 points. The rest of the thyroid parenchyma has normal, homogeneous echogenicity. IMPRESSION: 1. Solitary nodule dominating the left lobe of the thyroid gland. 2. TIRADS category 3: mildly suspicious. Because this is greater than 2.5 cm, ultrasound-guided fi ne needle aspiration is recommended. POS: [facility]
== END 2018-06-13 13:22 | disposition home or self-care (01) ==
LOC: BICULT 13:21
PROVIDERS: ATTEND Family Medicine
DX: E04.9 Nontoxic goiter, unspecified (principal); E04.1 Nontoxic single thyroid nodule
CPT/HCPCS: 76536

== ENCOUNTER 2018-06-26 12:46 | Day surgery (SDC) | payer OTHER ==
[2018-06-26] MEDS ORDERED: Sodium Bicarbonate 2.5 MEQ/5 ML VIAL ONE (12:58)
[2018-06-26] MEDS ORDERED: Lidocaine 1% MPF 2 ML VIAL ONE (13:37)
[2018-06-26 13:47] VITALS: BP 126/71; TEMP 98.2
--- NOTE | 2018-06-26 15:25 | ULT ---
ASPIRATION FINE NEEDLE ASPIRATION THYROID: HISTORY: Left-sided thyroid nodule. COMPARISON: Thyroid ultrasound 06/13/2018. TECHNIQUE/FINDINGS: The patient was brought to the ultrasound suite. All questions were answered. Informed consent was obtained. Timeout was performed. The patient's left neck was prepped and draped in a normal sterile fashion. Using ultrasound guidanc e, a total of 2 mL of Lidocaine was instilled into the superficial and deep soft tissues. The patient tolerated the procedure well without complication. A total of 4 passes with a 25-gauge n eedle were obtained. IMPRESSION: Technically successful ultrasound-guided fine needle aspiration. POS: [facility]
== END 2018-06-26 14:10 | disposition home or self-care (01) ==
LOC: ULT 12:46
PROVIDERS: ATTEND Otolaryngology Plastic Surgery within the Head & Neck
PROC: 0GBG3ZX Excision of Left Thyroid Gland Lobe, Percutaneous Approach, Diagnostic (ICD-10-PCS; principal; 2018-06-26)
DX: E04.1 Nontoxic single thyroid nodule (principal); I10 Essential (primary) hypertension; J35.8 Other chronic diseases of tonsils and adenoids; F45.8 Other somatoform disorders; Z79.899 Other long term (current) drug therapy
CPT/HCPCS: 10022; 76942; 88173; 88305

== ENCOUNTER 2018-07-26 08:37 | Outpatient (CLI) | payer OTHER ==
--- NOTE | 2018-07-26 10:37 | ULT ---
COMPLETE ABDOMEN ULTRASOUND: INDICATION: Generalized upper abdominal pain. HISTORY: Cholecystectomy. FINDINGS: The visualized aorta, IVC, and pancreas were unremarkable. There is fatty infiltration of the liver. The spleen measured 8.3 cm. The gallbladder is surgically absent. The common bile duct measured 5 .1 mm. The right kidney measures 12.3 x 4.7 x 4.8 cm. The left kidney measures 12.7 x 4.9 x 5.1 cm. There is a small 2.7 cm cyst that has developed along the lateral aspect of the left kidney since the pool rison CT examination of the abdomen and pelvis dated 05/29/2018. IMPRESSION: 1. Interval development of a 2.7 cm left renal cyst. 2. Fatty liver. 3. Cholecystectomy. POS: [facility]
== END 2018-07-26 08:38 | disposition home or self-care (01) ==
LOC: BICULT 08:37
PROVIDERS: ATTEND Family Medicine
DX: R10.10 Upper abdominal pain, unspecified (principal); N28.1 Cyst of kidney, acquired; K76.0 Fatty (change of) liver, not elsewhere classified; Z90.49 Acquired absence of other specified parts of digestive tract
CPT/HCPCS: 76700

== ENCOUNTER 2019-01-26 13:24 | Outpatient (CLI) | payer OTHER ==
--- NOTE | 2019-01-26 13:51 | RAD ---
3 views of the left shoulder: 01/26/2019 COMPARISON: None HISTORY: Acute left-sided shoulder pain FINDINGS: Incompletely imaged cervical spine anterior discectomy and fusion hardware is present. Ther e is mild osteophyte formation and joint space narrowing involving the left acromioclavicular joint. There is no widening of the coracoclavicular interspace. There is no displaced fracture or kadi dence of dislocation. IMPRESSION: No acute findings. Mild AC joint degenerative change.
== END 2019-01-26 13:25 | disposition home or self-care (01) ==
LOC: BICRAD 13:24
PROVIDERS: ATTEND Family Medicine
DX: M25.512 Pain in left shoulder (principal); M19.012 Primary osteoarthritis, left shoulder

== ENCOUNTER 2019-05-31 09:25 | Outpatient (CLI) | payer OTHER ==
--- NOTE | 2019-05-31 11:04 | ULT ---
US Renal Bilateral STANDARD History: Renal cyst Comparison: None. Findings: Real-time grayscale and color evaluation of the kidneys and urinary bladder was performed. Right kidney measures 11.5 x 5.7 x 4.7 cm and the left kidney measures 10.8 x 5.5 x 5.6 cm. No renal mass, hydronephrosis, or abnormal calcifications. The prevoid urinary bladder volume is 49 mL. Urinary bladder wall thickness is normal. Impression: Normal renal ultrasound. Recently described left renal cyst is not appreciated on today's exam and may have been artifactual.
== END 2019-05-31 09:26 | disposition home or self-care (01) ==
LOC: BICULT 09:25
PROVIDERS: ATTEND Family Medicine
DX: N28.1 Cyst of kidney, acquired (principal)
CPT/HCPCS: 76770

== ENCOUNTER 2019-06-22 12:28 | Outpatient (CLI) | payer OTHER ==
--- NOTE | 2019-06-22 13:34 | MMO ---
Bilateral MAMMO Bilat Screen [facility]. CLINICAL HISTORY: Patient is 39 years old and is seen for screening. The patient has no family history of breast cancer. The patient has no personal history of cancer. VIEWS: The views performed were: bilateral craniocaudal with tomosynthesis; bilateral mediolateral oblique with tomosynthesis; and right mediolateral oblique. This study has been interpreted with the assistance of computer-aided detection. MAMMOGRAM FINDINGS: There are scattered fibroglandular densities. There are no suspicious masses, suspicious calcifications, or new areas of architectural distortion. IMPRESSION: THERE IS NO MAMMOGRAPHIC EVIDENCE OF MALIGNANCY. A ROUTINE FOLLOW-UP MAMMOGRAM IN 1 YEAR IS RECOMMENDED. THE RESULTS OF THIS EXAM WERE SENT TO THE PATIENT. ACR BI-RADS Category 1 - Negative MAMMOGRAPHY NOTE: 1. A negative mammogram report should not delay a biopsy if a dominant of clinically suspicious mass is present. 2. Approximately 10% to 15% of breast cancers are not detected by mammography. 3. Adenosis and dense breasts may obscure an underlying neoplasm. Reported by: ADALGISA BERNAL MD Electonically Signed: [id number]
== END 2019-06-22 12:29 | disposition home or self-care (01) ==
LOC: BICMAMMO 12:28
PROVIDERS: ATTEND Family Medicine
DX: Z12.31 Encounter for screening mammogram for malignant neoplasm of breast (principal)
CPT/HCPCS: 77063; 77067

== ENCOUNTER 2019-07-16 12:38 | Outpatient (CLI) | payer OTHER ==
--- NOTE | 2019-07-16 13:41 | ULT ---
US Thyroid STANDARD HISTORY: Follow-up of thyroid nodule COMPARISON: 06/13/2018 study. FINDINGS: Real-time imaging of the right and left lobes of the gland were performed. The right lobe m easures 1.5 x 1.6 x 4.8 cm. The left lobe 1.7 x 1.9 x 4.3 cm. There is a complex left lobe thyroid nodule measuring approximately 1.5 x 1.8 cm in size. This is act ually reduced in size as compared to the prior exam. It measured 2.2 x 3.3 cm on the prior exam. IMPRESSION: Decrease in size of the complex left lobe thyroid nodule.
== END 2019-07-16 12:39 | disposition home or self-care (01) ==
LOC: BICULT 12:38
PROVIDERS: ATTEND Otolaryngology Plastic Surgery within the Head & Neck
DX: E04.1 Nontoxic single thyroid nodule (principal)
CPT/HCPCS: 76536

== ENCOUNTER 2019-08-17 14:42 | Outpatient (CLI) | payer OTHER ==
--- NOTE | 2019-08-17 15:14 | ULT ---
EXAM: Right lower extremity venous Doppler US HISTORY: Right lower extremity edema and pain FINDINGS: Grayscale, color-flow, Doppler evaluation, spectral analysis of the right lower extremity venous stru ctures is performed with 2-D imaging. The right common femoral, superficial femoral, popliteal, posterior tibial, proximal greater saphenous and profunda femoral veins are imaged. There is normal luminal compressibility, flow, and augmentation the visualized deep venous structures of the right lower extremity. There is a small fluid collection in the right popliteal region measuring 1.5 x 0.5 cm IMPRESSION: No evidence of a deep vein thrombosis in the right lower extremity.
== END 2019-08-17 14:43 | disposition home or self-care (01) ==
LOC: BICULT 14:42
PROVIDERS: ATTEND Family Medicine
DX: M25.561 Pain in right knee (principal)

== ENCOUNTER 2020-05-22 13:18 | Outpatient (CLI) | payer BC, OTHER ==
--- NOTE | 2020-05-22 13:42 | ULT ---
Exam:Rightlower extremity venous ultrasound with Doppler HISTORY: Right fullness behind the knee. History of thrombus. Lower extremity swelling COMPARISON: 08/17/2019 TECHNIQUE: Grayscale, color flow, Doppler imaging and spectral wave muscle performed right lower extr emity venous system FINDINGS: There is compressibility, presence of flow and augmentation in the common femoral vein, femoral vein and popliteal vein. There is flow in the posterior tibial vein. There is flow in the greater saphenous vein and profunda femoral vein IMPRESSION: No thrombus in the right lower extremity deep venous system.
== END 2020-05-22 13:19 | disposition home or self-care (01) ==
LOC: BICULT 13:18
PROVIDERS: ATTEND Family Medicine
DX: M79.604 Pain in right leg (principal)

== ENCOUNTER 2020-06-11 07:14 | Outpatient (CLI) | payer BC, OTHER ==
--- NOTE | 2020-06-11 08:31 | ULT ---
ULTRASOUND ABDOMEN COMPLETE: DATE: 06/11/2020. HISTORY: A 40-year-old female with fatty liver and hematuria, unspecified type. FINDINGS: Liver: Normal size and echogenicity. Gallbladder: Surgically absent. Common duct: 4 mm. Spleen: Difficult to visualize; no splenomegaly. Pancreas: Difficult to visualize, at least partially obscured by shadowing from bowel gas. Kidneys: No hydronephrosis. Abdominal aorta: No aneurysm. Inferior vena cava: Patent where visualized. Free fluid: None. IMPRESSION: 1. Status post cholecystectomy. 2. No pathology identified. JN R POS: OFF
== END 2020-06-11 07:15 | disposition home or self-care (01) ==
LOC: BICULT 07:14
PROVIDERS: ATTEND Family Medicine
DX: K76.0 Fatty (change of) liver, not elsewhere classified (principal); R31.9 Hematuria, unspecified; Z90.49 Acquired absence of other specified parts of digestive tract
CPT/HCPCS: 93975

== ENCOUNTER 2020-07-02 13:22 | Outpatient (CLI) | payer BC, OTHER ==
--- NOTE | 2020-07-02 13:53 | MMO ---
Bilateral MAMMO Bilat Screen [facility]. CLINICAL HISTORY: Patient is 40 years old and is seen for screening. The patient has no family history of breast cancer. The patient has no personal history of cancer. VIEWS: The views performed were: bilateral craniocaudal with tomosynthesis and bilateral mediolateral oblique with tomosynthesis. FILMS COMPARED: The present examination has been compared to a prior imaging study performed at [facility] on 06/22/2019. This study has been interpreted with the assistance of computer-aided detection. MAMMOGRAM FINDINGS: There are scattered fibroglandular densities. There are no suspicious masses, suspicious calcifications, or new areas of architectural distortion. IMPRESSION: THERE IS NO MAMMOGRAPHIC EVIDENCE OF MALIGNANCY. A ROUTINE FOLLOW-UP MAMMOGRAM IN 1 YEAR IS RECOMMENDED. THE RESULTS OF THIS EXAM WERE SENT TO THE PATIENT. ACR BI-RADS Category 1 - Negative MAMMOGRAPHY NOTE: 1. A negative mammogram report should not delay a biopsy if a dominant of clinically suspicious mass is present. 2. Approximately 10% to 15% of breast cancers are not detected by mammography. 3. Adenosis and dense breasts may obscure an underlying neoplasm. Reported by: STAS GUZMÁN MD Electonically Signed: [id number]
== END 2020-07-02 13:23 | disposition home or self-care (01) ==
LOC: BICMAMMO 13:22
PROVIDERS: ATTEND Family Medicine
DX: Z12.31 Encounter for screening mammogram for malignant neoplasm of breast (principal)
CPT/HCPCS: 77063; 77067

== ENCOUNTER 2020-08-15 15:56 | Outpatient (CLI) | payer BC, OTHER ==
--- NOTE | 2020-08-15 16:49 | ULT ---
EXAM: Left lower extremity venous duplex ultrasound with color and spectral Doppler imaging: HISTORY: Left leg pain COMPARISON: None FINDINGS: Exam performed from the groin to the ankle including the visualized greater saphenous, common femoral , superficial femoral, profunda femoral, popliteal, trifurcation, and posterior tibial veins. There is phasic flow with normal compressibility and normal augmentation at all examined levels. No evidence for intraluminal thrombus. IMPRESSION: No evidence for deep venous thrombosis.
== END 2020-08-15 15:57 | disposition home or self-care (01) ==
LOC: BICULT 15:56
PROVIDERS: ATTEND Family Medicine
DX: M79.605 Pain in left leg (principal)

== ENCOUNTER → 2020-08-21 | Day surgery (SDC) | payer BC, OTHER ==
[2020-08-20 13:48] VITALS: BMI 32.5
[~2020-08-21] MED LIST changes: -Iopamidol 370 76% 100 ML VIAL ONE; +Lidocaine 1% PF 5 ML VIAL ONE; +Sodium Bicarbonate 2.5 MEQ/5 ML VIAL ONE
--- NOTE | 2020-08-21 13:56 | ULT ---
Sonographic guided FNA left thyroid lobe mass. HISTORY: Enlarging left thyroid lobe mass. FINDINGS: After explaining the procedure and answering all questions, the heterogeneous hypoechoic ma ss within the left thyroid lobe was again visualized. Sterile technique, buffered local anesthesia, sonographic guidance, and a medial approach were used t o carefully advance a 25-gauge needle into the heterogeneous left thyroid lobe mass. Position was confirmed with sonography. A total of 4 passes were made. On the third pass image and on latter images, thickening of the anterior wall of the carotid artery i s apparent, isoechoic to the surrounding tissue and remainder of the wall. No blood was seen within the needle at the time of specimen acquisition. Patient was monitored after the procedure, with no unexpected difficulties and dismissed in good cond ition. IMPRESSION : Technically successful sonographic guided FNA left thyroid lobe mass. Pathology is pending.
== END ==
LOC: ULT 12:37
PROVIDERS: ATTEND Otolaryngology Plastic Surgery within the Head & Neck
PROC: 0GJK3ZZ Inspection of Thyroid Gland, Percutaneous Approach (ICD-10-PCS; principal; 2020-08-21)
PROC: BG44ZZZ Ultrasonography of Thyroid Gland (ICD-10-PCS; principal; 2020-08-21)
DX: E04.1 Nontoxic single thyroid nodule (principal); I10 Essential (primary) hypertension; Z79.01 Long term (current) use of anticoagulants; Z79.899 Other long term (current) drug therapy; Z88.5 Allergy status to narcotic agent
CPT/HCPCS: 60100; 76942; 88173

== ENCOUNTER 2021-07-03 12:00 | Outpatient (CLI) | payer BC, OTHER | END 2021-07-03 12:01 | disposition home or self-care (01) | LOC: BICMAMMO 12:00 | PROVIDERS: ATTEND Family Medicine | DX: Z12.31 Encounter for screening mammogram for malignant neoplasm of breast (principal) | CPT/HCPCS: 77063; 77067 ==

== ENCOUNTER 2022-07-06 14:40 | Outpatient (CLI) | payer BC | END 2022-07-06 14:41 | disposition home or self-care (01) | LOC: BICMAMMO 14:40 | PROVIDERS: ATTEND Family Medicine | DX: Z12.31 Encounter for screening mammogram for malignant neoplasm of breast (principal) | CPT/HCPCS: 77063; 77067 ==

== ENCOUNTER 2022-12-14 10:05 | Outpatient (CLI) | payer BC ==
[~2022-12-14 10:05] MED LIST changes: +Iopamidol 370 76% 100 ML VIAL ONE; -Lidocaine 1% PF 5 ML VIAL ONE; -Sodium Bicarbonate 2.5 MEQ/5 ML VIAL ONE
== END 2022-12-14 10:06 | disposition home or self-care (01) ==
LOC: BICCT 10:05
PROVIDERS: ATTEND Family Medicine
DX: R10.11 Right upper quadrant pain (principal)
CPT/HCPCS: 74178; 82565

== ENCOUNTER 2023-03-17 16:40 | Outpatient (CLI) | payer BC | END 2023-03-17 16:41 | disposition home or self-care (01) | LOC: SCSRAD 16:40 | PROVIDERS: ATTEND Family Medicine | DX: M54.31 Sciatica, right side (principal); M47.816 Spondylosis without myelopathy or radiculopathy, lumbar region; M47.817 Spondylosis without myelopathy or radiculopathy, lumbosacral region | CPT/HCPCS: 72100 ==

== ENCOUNTER 2023-04-06 14:10 | Outpatient (CLI) | payer BC ==
[~2023-04-06 14:10] MED LIST changes: -Iopamidol 370 76% 100 ML VIAL ONE; +Magnevist 469MG/ML 20 ML VIAL ONE
== END 2023-04-06 14:11 | disposition home or self-care (01) ==
LOC: BICMRI 14:10
PROVIDERS: ATTEND Family Medicine
DX: M54.31 Sciatica, right side (principal); M51.37 Other intervertebral disc degeneration, lumbosacral region
CPT/HCPCS: 72158; 82565

== ENCOUNTER 2023-05-03 09:57 | Outpatient (CLI) | payer BC | END 2023-05-03 09:58 | disposition home or self-care (01) | LOC: BICMAMMO 09:57 | PROVIDERS: ATTEND Family Medicine | DX: N64.4 Mastodynia (principal) | CPT/HCPCS: 77066; G0279 ==

== ENCOUNTER 2023-05-09 11:37 | Outpatient (CLI) | payer BC | END 2023-05-09 11:38 | disposition home or self-care (01) | LOC: SCSRAD 11:37 | PROVIDERS: ATTEND Family Medicine | DX: S69.92XA Unspecified injury of left wrist, hand and finger(s), initial encounter (principal) ==

== ENCOUNTER 2023-06-22 14:43 | Outpatient (CLI) | payer BC ==
[~2023-06-22 14:43] MED LIST changes: +Iopamidol 370 76% 100 ML VIAL ONE; -Magnevist 469MG/ML 20 ML VIAL ONE
== END 2023-06-22 14:44 | disposition home or self-care (01) ==
LOC: BICCT 14:43
PROVIDERS: ATTEND Physician Assistant
DX: M79.621 Pain in right upper arm (principal); E04.1 Nontoxic single thyroid nodule
CPT/HCPCS: 71270; 82565; Q9967

== ENCOUNTER 2023-07-05 12:53 | Outpatient (CLI) | payer BC | END 2023-07-05 12:54 | disposition home or self-care (01) | LOC: ULT 12:53 | PROVIDERS: ATTEND Physician Assistant | DX: E04.2 Nontoxic multinodular goiter (principal) | CPT/HCPCS: 76536 ==

== ENCOUNTER 2023-07-07 11:12 | Outpatient (CLI) | payer BC | END 2023-07-07 11:13 | disposition home or self-care (01) | LOC: BICMAMMO 11:12 | PROVIDERS: ATTEND Family Medicine | DX: Z12.31 Encounter for screening mammogram for malignant neoplasm of breast (principal) | CPT/HCPCS: 77063; 77067 ==

== ENCOUNTER → 2023-07-20 | Day surgery (SDC) | payer BC ==
[~2023-07-20] MED LIST changes: +EPINEPHrine 1 MG/ML AMP ONE; +Gadobenate 529 MG/1 ML (20ML SDV) ONE; +Iopamidol 300 61% 100 ML VIAL FS ONE; -Iopamidol 370 76% 100 ML VIAL ONE; +Lidocaine 1% PF 5 ML VIAL ONE
== END ==
LOC: EDSTATUS 10:00 → RAD 10:22
PROVIDERS: ATTEND Surgery Surgery of the Hand
PROC: BP2 Imaging, Non-Axial Upper Bones, Computerized Tomography (CT Scan) (ICD-10-PCS; principal; 2023-07-20)
DX: S63.592A Other specified sprain of left wrist, initial encounter (principal); X58.XXXA Exposure to other specified factors, initial encounter
CPT/HCPCS: 25246; A9577; J0171; J7050; Q9967

== ENCOUNTER 2024-07-11 12:01 | Outpatient (CLI) | payer OTHER | END 2024-07-11 12:02 | disposition home or self-care (01) | LOC: BICMAMMO 12:01 | PROVIDERS: ATTEND Family Medicine | DX: Z12.31 Encounter for screening mammogram for malignant neoplasm of breast (principal) | CPT/HCPCS: 77063; 77067 ==